=== PATIENT | male | born 1965 | race Caucasian/White ===

== ENCOUNTER → 2017-01-04 | Outpatient (CLI) | payer OTHER ==
[~2017-01-04] MED LIST: BAYETAB2 PO; CELE-19 PO; CENTTAB47 PO; GABA300C3 PO; GLUC1CAP9 PO; LIDO5DIS36 TD; SKEL-29 PO; TRAM50TA2 PO; [UNRECOGNIZED DRUG - CODE] PO
--- NOTE | 2017-01-05 00:06 | ECWPNPC ---
PATIENT NAME: JOSH FERGUSON : 1965 GENDER: MALE VISIT DATE: 01/04/2017 DISCHARGE DATE: 01/04/17 1108 VISIT LOCKED DATE TIME: PHYSICIAN: ALICIA MG RESOURCE: ALICIA MG REASON FOR APPOINTMENT 1. BACK HISTORY OF PRESENT ILLNESS HISTORY OF PRESENT ILLNESS: HERE FOR POST PROC. F/U.HAD LESI #2 ON 09-23-16.REPORTED MILD IMPROVEMENT FOR 5 DAYS POST PROCEDURE THEN PAIN RETURNED TO 8/10 LEVEL.REPORTING LEFT LEG SYMPTOMS OF PAIN AND TINGLING AFTER SHOVELING.HAD EPISODE OF SEVERE GERD AND WAS HOSPITALIZED FOR TWO DAYS.STOPPED CELEBREX 200MG PER MD ORDERS. CONTINUES TAKING SKELAXIN 800MG BID AND GABAPENTIN 300MG BID. PAIN THE PATIENT DESCRIBES THE PAIN... THE PATIENT DESCRIBES THE PAIN... FALL RISK SCREENING: SCREENING :NO FALLS IN THE PAST YEAR CURRENT MEDICATIONS TAKING ZONISAMIDE 25 MG CAPSULE 1 CAP ORALLY TWICE A DAY TAKING CIALIS 10 MG TABLET 1 TABLET ORALLY TAKING NEURONTIN 300 MG CAPSULE 1 CAPSULE ORALLY BID TAKING SKELAXIN 800 MG TABLET 1 TABLET ORALLY TWICE DAILY TAKING REGLAN 10 MG TABLET ORALLY DAILY TAKING PROTONIX 40 MG TABLET DELAYED RELEASE 1 TABLET ORALLY ONCE A DAY TAKING MAALOX ADVANCED 10 ML ORALLY TWICE A DAY NOT-TAKING CELEBREX 200 MG CAPSULE 1 CAPSULE ORALLY ONCE A DAY NOT-TAKING CENTRUM ADULTS TABLET ORALLY DAILY, NOTES: MONTH AGO NOT-TAKING LIDODERM 5 % PATCH 1 PATCH TO INTACT SKIN REMOVE AFTER 12 HOURS EXTERNALLY ONCE A DAY NOT-TAKING VALIUM 10 MG TABLET 1 ORALLY 1 TAB PRE PROC. MDD1, NOTES: 07/14/16 AT 1301 NOT-TAKING GLUCOSAMINE CHONDR 500 COMPLEX CAPSULE ORALLY DAILY, NOTES: NONE RECENT NOT-TAKING LYDIA BACK & BODY PAIN EX ST 500-32.5 MG TABLET ORALLY EVERY 6 HOURS NEEDED MEDICATION LIST REVIEWED AND RECONCILED WITH THE PATIENT ALLERGIES N.K.D.A. SOCIAL HISTORY GENERAL: TOBACCO USE ARE YOU A:NONSMOKER LEARNING BARRIERS / SPECIAL NEEDS ORIENTED TO PLAN OF CARE: PATIENT, PAIN MANAGEMENT PATIENT, ORIENTED TO PLAN OF CARE: PATIENT, PAIN MANAGEMENT PATIENT. NEW PATIENT PAIN DIARY TODAY'S VISITNOTES FROM 0-10, WHAT LEVEL IS YOUR PAIN TODAY?0 PAIN CLINIC PFS, CLERGY, PUBLIC HEALTH REFERRALS PFS REFERRAL NEEDED?NO CLERGY REFERRAL NEEDED?NO PUBLIC HEALTH REFERRAL NEEDED?NO WAS THE PROVIDER NOTIFIED OF ANY PERTINENT INFO?NO PFS REFERRAL NEEDED?NO CLERGY REFERRAL NEEDED?NO PUBLIC HEALTH REFERRAL NEEDED?NO WAS THE PROVIDER NOTIFIED OF ANY PERTINENT INFO?NO REVIEW OF SYSTEMS CONSTITUTIONAL: ANY CHANGE IN YOUR MEDICAL CONDITION? NO . CHILLS NO . FEVER NO . INFECTION: DO YOU HAVE NEW INFECTIONS? NO . DO YOU HAVE HISTORY OF MRSA? NO . MUSCULOSKELETAL: ANY NEW PATTERNS OF PAIN OR NUMBNESS? NO . GASTROENTEROLOGY: ANY NEW CHANGE IN BOWEL CONTROL? NO . GENITOURINARY: ANY NEW CHANGE IN BLADDER CONTROL? NO . IS THERE A CHANCE YOU COULD BE ? NO . HEMATOLOGY/LYMPH: DO YOU TAKE ANY BLOOD THINNERS? (FOR EXAMPLE- COUMADIN, PLAVIX, AGGRENOX, PLATEL, PRADAXA, OR XARELTO) NO . WHEN WAS YOUR LAST DOSE? DATE: TIME: . NEUROLOGY: HAVE YOU FALLEN IN THE PAST 6 MONTHS? NO . ANY NEW EXTREMITY NUMBNESS OR WEAKNESS? NO . CARDIOLOGY: DO YOU HAVE A PACEMAKER OR DEFIBRILLATOR? NO . RESPIRATORY: HAVE YOU BEEN SICK IN THE PAST WEEK? NO . FEVER NO . FLU LIKE SYMPTOMS? NO . COUGH NO . INTEGUMENTARY: DO YOU HAVE ANY RASHES OR OPEN SORES? NO . ALLERGIC/IMMUNO: ARE YOU ALLERGIC TO SHELLFISH OR IV DYE? NO . ANY NEW ALLERGIES? NO . PSYCHIATRIC: DO YOU HAVE THOUGHTS OF HURTING YOURSELF OR SOMEONE ELSE? NO . ARE YOU ABUSED, NEGLECTED, OR IN AN UNSAFE ENVIRONMENT? NO . ENDOCRINOLOGY: ARE YOU DIABETIC? NO . OTHER: DO YOU NEED ANY PRESCRIPTIONS? NO . IF YES, PLEASE LIST: ____ . ANY NEW PROBLEMS WITH YOUR MEDICATIONS? NO . WHEN DID YOU LAST EAT? ____ . WHEN DID YOU LAST DRINK? ____ . WHAT DID YOU LAST DRINK? ____ . NAME OF PERSON DRIVING YOU HOME? ____ . DO YOU HAVE ANY OTHER QUESTIONS OR CONCERNS NO . REVIEWED BY: PROVIDER: ALICIA FLAHERTY . VITAL SIGNS WT 158.8 LBS, HT 67 IN, BMI 24.87 INDEX, BP 104/65 MM HG, HR 50 /MIN, RR 16 /MIN, TEMP 96.3 F, OXYGEN SAT % 96%, NA INITIALS SC 10:30, REVIEWED BY: CS. EXAMINATION LUMBAR SPINE/LOWER BACK: INSPECTION: TENDERNESS NOTED OVER LOW BACK.ROJM AGGREVATES PAIN.. DIAGNOSTIC DATA -MRI L/S SPINE-REVIEWED THAT WAS DONE 07-27-2016 REVIEWED CERVICAL SPINE REVIEWED THAT WAS DONE 07-27-2016 MRI THORACIC SPINE DONE 07-27-2016-REVIEWED. ASSESSMENTS MYALGIA - M79.1 (PRIMARY) CHRONIC LEFT-SIDED THORACIC BACK PAIN - M54.6 LUMBAR DISC DISPLACEMENT WITHOUT MYELOPATHY - M51.26 TREATMENT MYALGIA STOP SKELAXIN TABLET, 800 MG, 1 TABLET, ORALLY, TWICE DAILY STOP CELEBREX CAPSULE, 200 MG, 1 CAPSULE, ORALLY, ONCE A DAY REFILL LIDODERM PATCH, 5 %, 1 PATCH TO INTACT SKIN REMOVE AFTER 12 HOURS, EXTERNALLY, ONCE A DAY ON12 OFF 12 TO LOW BACK, 30 DAY(S), 30, REFILLS 3 NOTES: S. PROCEDURE CODES FA211 ESTABILISHED PATIENT [facility] CHARGE DISPOSITION & COMMUNICATION FOLLOW UP 6 WEEKS ELECTRONICALLY SIGNED BY KRYSTINA SADLER ON 01/04/2017 AT 03:46 PM EST DISCLAIMER : THIS IS A VISIT SUMMARY EXTRACTED FROM THE [employer] CHART. IT IS NOT A COPY OF THE [employer] PROGRESS NOTE. ALTAGRACIA
== END ==
LOC: M PAIN 10:00
PROVIDERS: ATTEND Nurse Practitioner Family
DX: Z09 Encounter for follow-up examination after completed treatment for conditions other than malignant neoplasm (principal); G89.29 Other chronic pain; M79.1 Myalgia; M51.26 Other intervertebral disc displacement, lumbar region; M51.16 Intervertebral disc disorders with radiculopathy, lumbar region; Z79.899 Other long term (current) drug therapy

== ENCOUNTER 2017-10-05 08:58 | Day surgery (SDC) | payer OTHER ==
[~2017-10-05] VITALS: Ht 167.6 cm; Wt 68.9 kg
[~2017-10-05 08:58] MED LIST changes: -CELE-19 PO; +CELE1CAP4 PO; +CIAL10TA PO; +GABA-282 PO; -GABA300C3 PO; -LIDO5DIS36 TD; +LIDO5DIS41 TD; +METO10TA2 PO; +NEUR300C PO; +PANT40TA2 PO; -SKEL-29 PO; +SKEL800T97 PO; +ZONI100C2 PO; +ZONI50CA3 PO
[2017-10-05] MEDS ORDERED: NS 1,000 ML IV SCH (09:30)
[2017-10-05] MEDS ORDERED: LIDOCAINE 2% INJ 100 MG/5 ML SDV (FOR ANES.) As Ordered ONE (09:44)
[2017-10-05] MEDS ORDERED: PROPOFOL 200 MG/20 ML VIAL As Ordered ONE ×2 (09:44→10:28)
--- NOTE | 2017-10-05 09:58 | ROOR ---
Patient Name: Mitch Carmona Procedure Date: 10/05/2017 9:41 AM Date of : 1965 Age: 52 Room: [facility] Gender: Male Note Status: Finalized Procedure: Colonoscopy Indications: Screening for colorectal malignant neoplasm Providers: Miguel Stephen Jr, MD Referring MD: TRICE SANCHEZ MD Requesting Provider: Medicines: Propofol per Anesthesia Complications: No immediate complications. Procedure: Pre-Anesthesia Assessment: - Prior to the procedure, a History and Physical was performed, and patient medications and allergies were reviewed. The patient is competent. The risks and benefits of the procedure and the sedation options and risks were discussed with the patient. All questions were answered and informed consent was obtained. Patient identification and proposed procedure were verified by the physician and the nurse in the pre-procedure area and in the procedure room. Mental Status Examination: alert and oriented. Airway Examination: normal oropharyngeal airway and neck mobility. Respiratory Examination: clear to auscultation. CV Examination: normal. ASA Grade Assessment: II - A patient with mild systemic disease. After reviewing the risks and benefits, the patient was deemed in satisfactory condition to undergo the procedure. The anesthesia plan was to use moderate sedation / analgesia (conscious sedation). Immediately prior to administration of medications, the patient was re-assessed for adequacy to receive sedatives. The heart rate, respiratory rate, oxygen saturations, blood pressure, adequacy of pulmonary ventilation, and response to care were monitored throughout the procedure. The physical status of the patient was re-assessed after the procedure. The Colonoscope was introduced through the anus and advanced to the cecum, identified by appendiceal orifice and ileocecal valve. The colonoscopy was performed without difficulty. The patient tolerated the procedure well. The quality of the bowel preparation was adequate and good. Findings: The rectum, recto-sigmoid colon, sigmoid colon, descending colon, transverse colon, ascending colon, cecum, appendiceal orifice and ileocecal valve appeared normal. Impression: - The rectum, recto-sigmoid colon, sigmoid colon, descending colon, transverse colon, ascending colon, cecum, appendiceal orifice and ileocecal valve are normal. - No specimens collected. Recommendation: - Discharge patient to home (ambulatory). - Repeat colonoscopy in 10 years for screening purposes. Miguel Stephen MD Miguel Stephen Jr, MD 10/05/2017 9:58:34 AM This report has been signed electronically. Number of Addenda: 0 Note Initiated On: 10/05/2017 9:41 AM Estimated Blood Loss: Estimated blood loss: none.
[2017-10-05 10:23] VITALS: BP 125/75
== END 2017-10-05 10:24 | disposition home or self-care (01) ==
LOC: M OPP 08:58
PROVIDERS: ATTEND Surgery
DX: Z12.11 Encounter for screening for malignant neoplasm of colon (principal); K44.9 Diaphragmatic hernia without obstruction or gangrene; K21.9 Gastro-esophageal reflux disease without esophagitis; F17.210 Nicotine dependence, cigarettes, uncomplicated; G43.909 Migraine, unspecified, not intractable, without status migrainosus; M51.9 Unspecified thoracic, thoracolumbar and lumbosacral intervertebral disc disorder; Z79.899 Other long term (current) drug therapy

== ENCOUNTER → 2017-12-11 | Outpatient (CLI) | payer OTHER ==
[2017-12-11 15:29] LABS: FREE T4 0.93 NG/DL (0.76-1.46); THYROID STIMULATING HORMONE 0.836 uIU/ML (0.358-3.740)
== END ==
LOC: M LAB 13:46
DX: E04.2 Nontoxic multinodular goiter (principal)
CPT/HCPCS: 84443

== ENCOUNTER → 2017-12-18 | Outpatient (REF) | payer OTHER | LOC: M LAB REF 10:05 | DX: E04.1 Nontoxic single thyroid nodule (principal) ==